=== PATIENT | female | born 2000 | race African-American/Black ===

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

== ENCOUNTER 2021-11-21 11:43 | Emergency (ER) | payer MEDICAID ==
[~2021-11-21] VITALS: Ht 165.1 cm; Wt 50.0 kg
[2021-11-21] MEDS ORDERED: METHOCARBAMOL 750MG TABLET PO SCH (12:15)
[2021-11-21] MEDS ORDERED: MORPHINE SULFATE 4 MG/ML CPJ (NOT FOR IM USE) IV ONE (12:15)
[2021-11-21] MEDS ORDERED: ONDANSETRON HCL 4MG/2ML INJ IV ONE (13:45)
[2021-11-21] MEDS ORDERED: PROPOFOL 200MG/20ML VIAL IV ONE (13:45)
[2021-11-21] MEDS ORDERED: SODIUM CHLORIDE 0.9% 1,000 ML IV ONE (13:45)
[2021-11-21 15:25] VITALS: BP 116/71
== END 2021-11-21 17:00 | disposition home or self-care (01) ==
LOC: ER 12:29
DX: S43.014A Anterior dislocation of right humerus, initial encounter (principal); X58.XXXA Exposure to other specified factors, initial encounter; Y93.89 Activity, other specified; Y92.59 Other trade areas as the place of occurrence of the external cause
CPT/HCPCS: 73030; 96361; 96374; 96375; 99152; 99285; J2270; J2405; J2704; J7030